=== PATIENT | female | born 1965 | race African-American/Black ===

== ENCOUNTER 2016-11-01 22:02 | Emergency (ER) | payer MEDICAID ==
[~2016-11-01] VITALS: Ht 154.9 cm; Wt 75.0 kg
[~2016-11-01 22:02] MED LIST: TOPI25TA7
[2016-11-01 22:17] VITALS: BP 124/84
== END 2016-11-01 23:59 | disposition left against medical advice (07) ==
LOC: ER 22:02
DX: R05 Cough (principal); R09.81 Nasal congestion; Z53.21 Procedure and treatment not carried out due to patient leaving prior to being seen by health care provider